=== PATIENT | male | born 1975 | race Hispanic/Latino ===

== ENCOUNTER 2018-10-26 04:35 | Inpatient (IN) | payer SELFPAY ==
[~2018-10-26] VITALS: Ht 165.1 cm; Wt 89.8 kg
[2018-10-26] MEDS ORDERED: KETOROLAC TROMETHAMINE 15MG/ML ONE ×2 (05:12→05:13)
[2018-10-26 05:35] LABS: BASOPHILS % (AUTO) 0.4 % (0.0-5.0); EOSINOPHILS % (AUTO) 1.6 % (0.0-8.0); HEMATOCRIT 42.4 % (42-54); LYMPHOCYTES % (AUTO) 20.7 % (21.0-51.0); MEAN CORPUSCULAR HEMOGLOBIN 30.9 pg (27.0-33.0); MEAN CORPUSCULAR HGB CONC 34.9 g/dL (32.0-36.0); MEAN CORPUSCULAR VOLUME 88.5 fL (79-99); MONOCYTES % (AUTO) 6.4 % (3.0-13.0); NEUTROPHILS % (AUTO) 70.9 % (40.0-77.0); PLATELET COUNT (AUTO) 169 K/uL (130-400); RED BLOOD CELL COUNT(AUTO) 4.79 MIL/uL (4.50-6.20); RED CELL DISTRIBUTION WIDTH 13.8 % (11.0-15.5); WHITE BLOOD COUNT (AUTO) 7.3 K/uL (4.8-10.8)
[2018-10-26 05:36] LABS: APPEARANCE,URINE Clear (CLEAR); BILIRUBIN,URINE Negative (NEGATIVE); COLOR,URINE Yellow (YELLOW); GLUCOSE, URINE (UA) Negative (NEGATIVE); KETONES,URINE Negative (NEGATIVE); LEUKOCYTE ESTERASE ,URINE Negative (NEGATIVE); NITRATE,URINE Negative (NEGATIVE); OCCULT BLOOD,URINE Negative (NEGATIVE); PH,URINE 5.5 (5.0-8.0); PROTEIN,URINE Trace (NEGATIVE); UROBILINOGEN,URINE 0.2 mg/dL (0.2-1.0)
[2018-10-26 05:42] LABS: POTASSIUM 3.4 mmol/L (3.5-5.1)
[2018-10-26 05:43] LABS: AMPHET/METH SCREEN,URINE NEGATIVE (NEGATIVE); BARBITURATE SCREEN, URINE NEGATIVE (NEGATIVE); BENZODIAZEPINES SCREEN,URINE NEGATIVE (NEGATIVE); CANNABINOID SCREEN,URINE NEGATIVE (NEGATIVE); COCAINE SCREEN,URINE NEGATIVE (NEGATIVE); OPIATE SCREEN,URINE NEGATIVE (NEGATIVE); PHENCYCLIDINE SCREEN,URINE NEGATIVE (NEGATIVE)
[2018-10-26 05:46] LABS: BILIRUBIN,TOTAL 0.6 mg/dL (0.2-1.0); TOTAL PROTEIN, SERUM 8.3 g/dL (6.0-8.3)
[2018-10-26] MEDS ORDERED: ONDANSETRON HCL 4 MG/2 ML VIAL ONE (06:16)
[2018-10-26] MEDS ORDERED: CEFTRIAXONE SODIUM 1 GM ONE (06:16)
[2018-10-26] MEDS ORDERED: MORPHINE SULFATE 4 MG/1ML SYG ONE (06:17)
[2018-10-26] MEDS ORDERED: MORPHINE SULFATE 4 MG/1ML SYG IVP PRN (07:00)
[2018-10-26] MEDS ORDERED: ONDANSETRON HCL 4 MG/2 ML VIAL IVP PRN (07:00)
[2018-10-26] MEDS ORDERED: SODIUM CHLORIDE 0.9% 1000ML 1,000 ML IV SCH (07:00)
[2018-10-26] MEDS ORDERED: MORPHINE SULFATE 2 MG/ML 1ML SYG IVP PRN (07:00)
[2018-10-26] MEDS: ZOSYN 3.375GM+NS 50ML 50 ML IV SCH ×2 (07:00→15:04)
[2018-10-26] MEDS ORDERED: ENOXAPARIN SODIUM 40 MG/0.4 ML SYRINGE SQ ONE (07:18)
[2018-10-26] MEDS ORDERED: SODIUM CHLORIDE 0.9% 1000ML 1,000 ML IV ONE (07:18)
[2018-10-26] MEDS ORDERED: ZOSYN 3.375GM+NS 50ML 50 ML IV ONE (07:19)
[2018-10-26] MEDS ORDERED: SODIUM CHLORIDE 0.9% 50 ML IV ONE (07:19)
[2018-10-26] MEDS ORDERED: MORPHINE SULFATE 2 MG/ML 1ML SYG IV PRN (09:00)
[2018-10-26] MEDS ORDERED: ONDANSETRON HCL 4 MG/2 ML VIAL IV PRN (09:00)
[2018-10-26] MEDS: FAMOTIDINE/PF 20 MG/2 ML VIAL IV SCH ×2 (09:00→21:44)
[2018-10-26] MEDS ORDERED: ENOXAPARIN SODIUM 40 MG/0.4 ML SYRINGE SQ SCH (09:00)
[2018-10-26] MEDS ORDERED: MORPHINE SULFATE 4 MG/1ML SYG IV PRN (09:00)
[2018-10-26] MEDS: ENOXAPARIN SODIUM 40 MG/0.4 ML SYRINGE SQ SCH (09:00)
[2018-10-26] MEDS ORDERED: ACETAMINOPHEN 325 MG TAB PO PRN (09:00)
[2018-10-26] MEDS: LEVOFLOXACIN 500 MG/D5W 100 ML 100 ML IV SCH (09:00)
[2018-10-26] MEDS ORDERED: HYDRALAZINE HCL 20 MG/ML VIAL IV PRN (09:00)
[2018-10-26] MEDS ORDERED: METRONIDAZOLE 500MG/100ML BAG 100 ML ONE (10:59)
[2018-10-26] MEDS: METRONIDAZOLE 500MG/100ML BAG 100 ML IV SCH ×2 (11:44→18:13)
[2018-10-26] MEDS: SODIUM CHLORIDE 0.9% 1000ML 1,000 ML IV SCH ×2 (11:47→18:14)
[2018-10-26 12:56] VITALS: BP 117/74
[2018-10-26 16:55] VITALS: BP 127/53
[2018-10-26 19:10] VITALS: BP 137/79
[2018-10-27] MEDS: ZOSYN 3.375GM+NS 50ML 50 ML IV SCH ×4 (00:29→23:23)
[2018-10-27 00:51] VITALS: BP 135/68
[2018-10-27] MEDS: METRONIDAZOLE 500MG/100ML BAG 100 ML IV SCH ×3 (01:03→17:15)
[2018-10-27] MEDS: SODIUM CHLORIDE 0.9% 1000ML 1,000 ML IV SCH (01:05)
[2018-10-27 04:25] VITALS: BP 127/72
[2018-10-27 08:29] VITALS: BP 130/75
[2018-10-27] MEDS: FAMOTIDINE/PF 20 MG/2 ML VIAL IV SCH ×2 (09:38→21:30)
[2018-10-27] MEDS: LEVOFLOXACIN 500 MG/D5W 100 ML 100 ML IV SCH (09:44)
[2018-10-27] MEDS: ENOXAPARIN SODIUM 40 MG/0.4 ML SYRINGE SQ SCH (09:47)
[2018-10-27 11:38] VITALS: BP 129/65
[2018-10-27] MEDS: NS-20 MEQ KCL 1000ML 1,000 ML IV SCH ×3 (12:42→21:30)
[2018-10-27] MEDS ORDERED: PEG 3350/NA SULF,BICARB,CL/KCL 4000 ML SOLN PO SCH (15:30)
[2018-10-27 17:06] VITALS: BP 151/84
[2018-10-27 20:00] VITALS: BP 117/79
[2018-10-28] VITALS (21 sets, daily range): BP systolic 94–141; BP diastolic 39–91
[2018-10-28] MEDS: METRONIDAZOLE 500MG/100ML BAG 100 ML IV SCH (01:00)
[2018-10-28 04:51] LABS: HEMATOCRIT 38.8 % (42-54); MEAN CORPUSCULAR HEMOGLOBIN 30.5 pg (27.0-33.0); MEAN CORPUSCULAR HGB CONC 34.3 g/dL (32.0-36.0); MEAN CORPUSCULAR VOLUME 88.9 fL (79-99); PLATELET COUNT (AUTO) 157 K/uL (130-400); RED BLOOD CELL COUNT(AUTO) 4.36 MIL/uL (4.50-6.20); RED CELL DISTRIBUTION WIDTH 13.9 % (11.0-15.5); WHITE BLOOD COUNT (AUTO) 6.2 K/uL (4.8-10.8)
[2018-10-28 05:01] LABS: INR 1.08 (0.85-1.15); PROTHROMBIN TIME 11.3 SEC (9.6-11.6)
[2018-10-28] MEDS ORDERED: LIDOCAINE HCL-MPF 2% 5ML VIAL ONE (06:28)
[2018-10-28] MEDS ORDERED: PROPOFOL 10 MG/ML 20ML VIAL IV ONE (06:28)
[2018-10-28] MEDS ORDERED: GLYCOPYRROLATE 0.2 MG/ML 5 ML VIAL ONE (06:28)
[2018-10-28] MEDS ORDERED: LEVOFLOXACIN 500 MG TABLET PO SCH (09:00)
[2018-10-28] MEDS: ENOXAPARIN SODIUM 40 MG/0.4 ML SYRINGE SQ SCH (09:00)
[2018-10-28] MEDS: METRONIDAZOLE 500 MG TABLET PO SCH ×2 (09:40→15:39)
[2018-10-28] MEDS: FAMOTIDINE/PF 20 MG/2 ML VIAL IV SCH (09:40)
[2018-10-28] MEDS ORDERED: LEVO500T89 PO (14:50)
[2018-10-28] MEDS ORDERED: METR-224 PO (14:50)
== END 2018-10-28 17:02 | disposition home or self-care (01) | DRG 392 ==
LOC: EDH 04:35 → EDHIP 04:36 → EDBD 04:36 → 3BH 11:36
PROVIDERS: ADMIT Internal Medicine; ATTEND Internal Medicine
PROC: 0DBN8ZX Excision of Sigmoid Colon, Via Natural or Artificial Opening Endoscopic, Diagnostic (ICD-10-PCS; principal; 2018-10-28)
DX: K57.30 Diverticulosis of large intestine without perforation or abscess without bleeding (principal); E66.9 Obesity, unspecified; E87.6 Hypokalemia; K63.9 Disease of intestine, unspecified; K59.00 Constipation, unspecified; Z68.32 Body mass index [BMI] 32.0-32.9, adult; Z83.3 Family history of diabetes mellitus; Z82.3 Family history of stroke; Z80.9 Family history of malignant neoplasm, unspecified
CPT/HCPCS: 36415; 45380; 74176; 80048; 80053; 80305; 81003; 82378; 85025; 85027; 85610; 86140; 88305; G0378; J0696; J1650; J1885; J1956; J2270; J2405; J2543; J2704; J3480; J3490; J7030